=== PATIENT | female | born 1945 | race Caucasian/White ===

== ENCOUNTER 2018-04-18 15:36 | Emergency (ER) | payer MEDICARE, MEDICAID ==
[~2018-04-18] VITALS: Ht 162.6 cm; Wt 63.5 kg
[2018-04-18 16:01] VITALS: BP 147/65
--- NOTE | 2018-04-18 16:05 | NUR ---
72Y/F BIB DAUGHTER C/O RIGHT THIGH PAIN X 3 WEEKS. DENIES TRAUMA. PT STATES SHE WAS SENT FROM URGENT CARE TO RULE OUT BLOOD CLOT IN THE THIGH. BED DOWN, BEDRAIL UP X 1, ER MD AWARE AND NOTIFIED OF PT STATUS. HX : DM MED: ASPIRIN, CELEXA, VIT B, DULCOLAX, FLONASE, IBUPROFEN,,LISINOPRIL, METFORMIN,VITD3
[2018-04-18] MEDS ORDERED: DEXAMETHASONE 10 MG/ML VIAL IM ONE (16:35)
[2018-04-18] MEDS ORDERED: KETOROLAC 60 MG/2 ML VIAL IM ONE (16:35)
[2018-04-18 17:02] LABS: BASOPHILS % (AUTO) 0.3 % (0.0-2.0); EOSINOPHILS # (AUTO) 0.1 K/uL (0-0.4); EOSINOPHILS % (AUTO) 1.7 % (0.0-4.0); HEMATOCRIT 35.5 % (36-48); HEMOGLOBIN 11.9 g/dL (12.0-16.0); LYMPHOCYTES # (AUTO) 1.9 K/uL (2.5-16.5); LYMPHOCYTES % (AUTO) 29.3 % (20.5-51.1); MEAN CORPUSCULAR HEMOGLOBIN 27 pg (27-31); MEAN CORPUSCULAR HGB CONC 33 g/dL (33-37); MEAN CORPUSCULAR VOLUME 79.4 fL (80-94); MONOCYTES # (AUTO) 0.4 K/uL (0.8-1.0); MONOCYTES % (AUTO) 6.8 % (1.7-9.3); NEUTROPHILS % (AUTO) 61.9 % (42.2-75.2); PLATELET COUNT (AUTO) 187 K/uL (140-450); RED BLOOD CELL COUNT(AUTO) 4.48 MIL/uL (4.20-5.40); RED CELL DISTRIBUTION WIDTH 14.6 % (11.6-13.7); WHITE BLOOD COUNT (AUTO) 6.5 K/uL (4.8-10.8)
[2018-04-18 17:16] LABS: CARBON DIOXIDE 29.6 mmol/L (21-32); CHLORIDE 104 mmol/L (98-107); CREATININE 0.7 mg/dL (0.6-1.3); GLUCOSE 150 mg/dL (74-106); POTASSIUM 3.6 mmol/L (3.5-5.1); SODIUM SERUM 139 mmol/L (136-145); UREA NITROGEN, BLOOD 20 mg/dL (7-18)
--- NOTE | 2018-04-18 17:19 | NUR ---
PT TAKEN TO CT AND XRAY VIA MAURICIO
[2018-04-18 17:22] LABS: ALBUMIN 3.9 g/dL (3.4-5.0); AMYLASE 52 U/L (25-115); ASPARTATE AMINOTRANSFERASE 27 U/L (15-37); LIPASE 213 U/L (73-393); TOTAL BILIRUBIN 0.5 mg/dL (0.0-1.0)
[2018-04-18 17:26] LABS: PROTHROMBIN TIME 10.5 secs (10.8-13.4)
[2018-04-18 17:37] LABS: APPEARANCE,URINE SLIGHTLY HAZY (CLEAR); BILIRUBIN,URINE NEGATIVE (NEGATIVE); BLOOD, URINE NEGATIVE (NEGATIVE); COLOR,URINE YELLOW (YELLOW); LEUKOCYTE ESTERASE ,URINE NEGATIVE (NEGATIVE); NITRITE, URINE POSITIVE (NEGATIVE); PH,URINE 5.5 (5.0-9.0); UGLUCOSE NEGATIVE (NEGATIVE)
[2018-04-18 17:41] LABS: RBC,URINE 0-5 (RARE) /HPF (0-5)
[2018-04-18] MEDS ORDERED: LEVOFLOXACIN 500 MG TAB PO ONE (17:55)
[2018-04-18 19:25] VITALS: BP 138/64
--- NOTE | 2018-04-18 19:25 | NUR ---
Patient discharged with v/s stable. Written and verbal after care instructions given and explained. Patient alert, oriented and verbalized understanding of instructions. Ambulatory with steady gait. All questions addressed prior to discharge. ID band removed. Patient advised to follow up with PMD. Rx of VOLTAREN AND BACTRIM given. Patient educated on indication of medication including possible reaction and side effects. Opportunity to ask questions provided and answered.
== END 2018-04-18 19:25 | disposition home or self-care (01) ==
LOC: MED 15:36
DX: M79.651 Pain in right thigh (principal); M54.17 Radiculopathy, lumbosacral region; N39.0 Urinary tract infection, site not specified; E11.9 Type 2 diabetes mellitus without complications
CPT/HCPCS: 36415; 71045; 72131; 80053; 81001; 82150; 82550; 82553; 83690; 84484; 85025; 85379; 85610; 85730; 87086; 87186; 93005; 93971; 96372; 99284; J1100; J1885; Q0092

== ENCOUNTER 2018-06-01 16:35 | Emergency (ER) | payer MEDICARE, MEDICAID ==
[~2018-06-01] VITALS: Ht 162.6 cm; Wt 73.1 kg
[2018-06-01 16:40] VITALS: BP 138/74
--- NOTE | 2018-06-01 16:48 | NUR ---
73/ F BIB SELF, C/O OF NECK PAIN THAT RADIATES TO LOWER BACK. PATIENT FELL X2 DAYS AGO, SLIPPED IN RESTROOM WHEN SHE WAS DRESSING HER SELF. PATIENT DENIES LOC, CHANGE IN VISION, N/V. REPORTS FEELING DIZZY AT THE TIME OF FALL. PATIENT POSTERIOR BASE OF THE NECK IS SWOLLEN WITH SOME REDNESS. PAIN 8/10 CONSTANT, AGGRAVATED WITH MOVEMENT, DESCRIBES A DULL THROBBING PAIN. SPEECH IS CLEAR, AOX4, STEADY GAIT. SAFETY PRECAUTIONS IN PLACE.
[2018-06-01] MEDS ORDERED: IBUPROFEN 400 MG TAB PO ONE (17:20)
--- NOTE | 2018-06-01 17:26 | NUR ---
PATIENT TAKEN TO X RAY, ACCOMPANIED BY CARD PLACER.
--- NOTE | 2018-06-01 17:40 | NUR ---
PT BACK IN BED FROM CT.
--- NOTE | 2018-06-01 18:20 | NUR ---
DR. IRAHETA AT BEDSIDE.
[2018-06-01 18:29] VITALS: BP 130/45
== END 2018-06-01 18:29 | disposition home or self-care (01) ==
LOC: MED 16:35
DX: S16.1XXA Strain of muscle, fascia and tendon at neck level, initial encounter (principal); M50.322 Other cervical disc degeneration at C5-C6 level; M50.323 Other cervical disc degeneration at C6-C7 level; E11.9 Type 2 diabetes mellitus without complications; W01.0XXA Fall on same level from slipping, tripping and stumbling without subsequent striking against object, initial encounter; Y93.89 Activity, other specified; Y92.89 Other specified places as the place of occurrence of the external cause; Y99.8 Other external cause status
CPT/HCPCS: 72040; 99283

== ENCOUNTER 2019-11-05 18:54 | Emergency (ER) | payer MEDICARE, MEDICAID ==
[~2019-11-05] VITALS: Ht 162.6 cm; Wt 65.8 kg
[2019-11-05 19:09] VITALS: BP 145/71
[2019-11-05] MEDS ORDERED: BACITRACIN OINT 500 UNITS/GM PKT TP ONE (19:25)
--- NOTE | 2019-11-05 19:25 | NUR ---
LION ROBERT WITH PT
--- NOTE | 2019-11-05 20:03 | NUR ---
Patient discharged with v/s stable. Written and verbal after care instructions about laceration care given and explained. Patient alert, oriented and verbalized understanding of instructions. Ambulatory with steady gait. All questions addressed prior to discharge. ID band removed. Patient advised to follow up with PMD. Rx of ibuprofen given. Patient educated on indication of medication including possible reaction and side effects. Opportunity to ask questions provided and answered.
[2019-11-05 20:04] VITALS: BP 145/71
== END 2019-11-05 20:03 | disposition home or self-care (01) ==
LOC: MED 18:54
DX: S61.011A Laceration without foreign body of right thumb without damage to nail, initial encounter (principal); W26.8XXA Contact with other sharp object(s), not elsewhere classified, initial encounter; Y93.89 Activity, other specified; Y92.89 Other specified places as the place of occurrence of the external cause; Y99.8 Other external cause status
CPT/HCPCS: 90471; 90715; 99283

== ENCOUNTER 2021-05-24 18:22 | Emergency (ER) | payer MEDICARE, MEDICAID ==
[~2021-05-24] VITALS: Ht 154.9 cm; Wt 64.9 kg
[2021-05-24 18:47] VITALS: BP 140/73
[2021-05-24] MEDS ORDERED: NACL 0.9% 1,000 ML IV ONE (19:15)
[2021-05-24] MEDS ORDERED: MECLIZINE 25 MG TAB PO ONE (19:15)
[2021-05-24 19:39] LABS: BASOPHILS % (AUTO) 0.4 % (0.0-2.0); EOSINOPHILS # (AUTO) 0.1 K/uL (0-0.4); EOSINOPHILS % (AUTO) 1.6 % (0.0-4.0); HEMATOCRIT 31.5 % (36-48); HEMOGLOBIN 10.8 g/dL (12.0-16.0); LYMPHOCYTES # (AUTO) 1.4 K/uL (2.5-16.5); LYMPHOCYTES % (AUTO) 18.3 % (20.5-51.1); MEAN CORPUSCULAR HEMOGLOBIN 26 pg (27-31); MEAN CORPUSCULAR HGB CONC 34 g/dL (33-37); MEAN CORPUSCULAR VOLUME 75.8 fL (80-94); MONOCYTES # (AUTO) 0.5 K/uL (0.8-1.0); MONOCYTES % (AUTO) 6.2 % (1.7-9.3); NEUTROPHILS # (AUTO) 5.5 K/uL (1.8-7.7); NEUTROPHILS % (AUTO) 73.5 % (42.2-75.2); PLATELET COUNT (AUTO) 211 K/uL (140-450); RED BLOOD CELL COUNT(AUTO) 4.16 MIL/uL (4.20-5.40); RED CELL DISTRIBUTION WIDTH 15.9 % (11.6-13.7); WHITE BLOOD COUNT (AUTO) 7.5 K/uL (4.8-10.8)
[2021-05-24 19:50] LABS: ALBUMIN 3.9 g/dL (3.4-5.0); ANION GAP 11.6 (8-16); ASPARTATE AMINOTRANSFERASE 29 U/L (15-37); CARBON DIOXIDE 27.1 mmol/L (21-32); CHLORIDE 105 mmol/L (98-107); CREATININE 0.7 mg/dL (0.6-1.3); GLUCOSE 219 mg/dL (74-106); POTASSIUM 3.7 mmol/L (3.5-5.1); SODIUM SERUM 140 mmol/L (136-145); TOTAL BILIRUBIN 0.4 mg/dL (0.0-1.0); UREA NITROGEN, BLOOD 15 mg/dL (7-18)
[2021-05-24] MEDS ORDERED: MECLIZINE 25 MG TAB ONE (20:20)
[2021-05-24 20:29] LABS: APPEARANCE,URINE CLEAR (CLEAR); BILIRUBIN,URINE NEGATIVE (NEGATIVE); BLOOD, URINE TRACE-I (NEGATIVE); COLOR,URINE YELLOW (YELLOW); LEUKOCYTE ESTERASE ,URINE TRACE (NEGATIVE); NITRITE, URINE NEGATIVE (NEGATIVE); UGLUCOSE 3+ (NEGATIVE)
[2021-05-24 20:43] LABS: RBC,URINE NONE SEEN /HPF (0-5)
[2021-05-24 20:44] LABS: WBC,URINE 0-5 /HPF (0-5); YEAST,URINE Few /HPF (None Seen)
[2021-05-24] MEDS ORDERED: MECL-303 PO (23:36)
== END 2021-05-24 23:55 | disposition home or self-care (01) ==
LOC: MED 18:22
DX: S53.402A Unspecified sprain of left elbow, initial encounter (principal); S83.92XA Sprain of unspecified site of left knee, initial encounter; S00.83XA Contusion of other part of head, initial encounter; E11.65 Type 2 diabetes mellitus with hyperglycemia; R42 Dizziness and giddiness; R11.10 Vomiting, unspecified; D50.9 Iron deficiency anemia, unspecified; G30.9 Alzheimer's disease, unspecified; F02.80 Dementia in other diseases classified elsewhere, unspecified severity, without behavioral disturbance, psychotic disturbance, mood disturbance, and anxiety; Z79.899 Other long term (current) drug therapy; W19.XXXA Unspecified fall, initial encounter; Y93.89 Activity, other specified; Y92.89 Other specified places as the place of occurrence of the external cause; Y99.8 Other external cause status
CPT/HCPCS: 36415; 70450; 70486; 71045; 72125; 73070; 73560; 80053; 81001; 85025; 87086; 96360; 99285; J7030; J8597

== ENCOUNTER 2021-06-07 12:03 | Emergency (ER) | payer MEDICARE, MEDICAID ==
[~2021-06-07] VITALS: Ht 162.6 cm; Wt 65.8 kg
[~2021-06-07 12:03] MED LIST: MECL-303 PO
[2021-06-07 13:04] VITALS: BP 136/63
[2021-06-07] MEDS ORDERED: KETOROLAC 60 MG/2 ML VIAL IM ONE ×2 (15:20→15:21)
[2021-06-07] MEDS ORDERED: IBUP-2213 PO (15:29)
[2021-06-07] MEDS ORDERED: DIAZ5TAB8 PO (15:29)
[2021-06-07 16:23] VITALS: BP 127/67
== END 2021-06-07 16:30 | disposition home or self-care (01) ==
LOC: MED 12:03
DX: S09.90XA Unspecified injury of head, initial encounter (principal); M25.562 Pain in left knee; M25.511 Pain in right shoulder; W19.XXXA Unspecified fall, initial encounter; Y93.89 Activity, other specified; Y92.89 Other specified places as the place of occurrence of the external cause; Y99.8 Other external cause status
CPT/HCPCS: 70450; 96372; 99284; J1885

== ENCOUNTER 2022-02-22 00:15 | Emergency (ER) | payer MEDICARE, MEDICAID ==
[~2022-02-22 00:15] MED LIST changes: +DIAZ5TAB8 PO; +IBUP-2213 PO
--- NOTE | 2022-02-22 00:48 | NUR ---
PT WALKED OF LOBBY WITH HER DAUGHTER. I WENT OUTSIDE TO CALL, NO ANSWER.
== END 2022-02-22 00:48 | disposition left against medical advice (07) ==
LOC: MED 00:15
DX: M79.604 Pain in right leg (principal); Z53.21 Procedure and treatment not carried out due to patient leaving prior to being seen by health care provider